=== PATIENT | male | born 1965 | race Caucasian/White ===

== ENCOUNTER 2022-09-06 10:22 | Emergency (ER) | payer MEDICAID ==
[~2022-09-06] VITALS: Ht 177.8 cm; Wt 79.4 kg
[2022-09-06] MEDS ORDERED: ACET325 (11:09)
[2022-09-06] MEDS ORDERED: IBUP200 (11:10)
[2022-09-06 11:45] LABS: BASOPHILS ABSOLUTE AUTO 0.05 K/mm3 (0.00-0.23); BASOPHILS PERCENT AUTO 0 % (0-2); Hematocrit 29.9 % (37.0-53.0); Hemoglobin 9.5 g/dL (13.5-17.5); LYMPHOCYTES ABSOLUTE AUTO 0.51 K/mm3 (0.84-5.20); LYMPHOCYTES PERCENT AUTO 3 % (21-46); MONOCYTES ABSOLUTE AUTO 0.28 K/mm3 (0.16-1.47); MONOCYTES PERCENT AUTO 2 % (4-13); Mean Corpuscular HGB Conc 31.8 g/dL (31.5-36.5); Mean Corpuscular Volume 82 fL (80-100); Mean Platelet Volume 9.1 fL (9.1-12.4); Platelet Count 431 K/mm3 (150-400); RDW Coefficient Variation 20.5 % (11.7-14.2); RDW Standard Deviation 61.6 fL (35.1-46.3); Red Blood Cell Count 3.65 M/mm3 (4.30-5.90); White Blood Cell Count 14.92 K/mm3 (4.00-11.30)
[2022-09-06 11:50] LABS: Calcium, Ionized (POC) 0.97 mmol/L (1.10-1.46); Chloride (POC) 93 mmol/L (98-108); Creatinine (POC) 0.5 mg/dL (0.8-1.3); Glucose (ISTAT POC) 134 mg/dL (70-99); Hemoglobin (POC) 10.9 g/dL (13.5-17.5); Potassium (POC) 3.1 mmol/L (3.5-5.5); Sodium (POC) 130 mmol/L (135-148); Total CO2 (POC) 25 mmol/L (21-32)
[2022-09-06 11:54] LABS: EOSINOPHILS ABSOLUTE AUTO 0.01 K/mm3 (0.00-0.68); EOSINOPHILS PERCENT AUTO 0 % (0-6); IMMATURE GRAN PERCENT AUTO 5 % (0-1); NEUTROPHILS ABSOLUTE AUTO 13.37 K/mm3 (1.96-9.15); NEUTROPHILS PERCENT AUTO 90 % (41-73)
[2022-09-06 12:15] LABS: Influenza A, PCR NEGATIVE (NEGATIVE); Influenza B, PCR NEGATIVE (NEGATIVE); Resp Syncytial Virus, PCR NEGATIVE (NEGATIVE); SARS-Cov-2 (COVID-19) PCR, MMC NEGATIVE (NEGATIVE)
[2022-09-06 13:22] LABS: Albumin/Globulin Ratio 0.4 (0.8-1.8); Bilirubin, Total 0.5 mg/dL (0.1-1.0); Bun/Creatinine Ratio 21.9 (12.0-20.0); Creatinine, Blood 0.64 mg/dL (0.60-1.20); Potassium, Blood 3.3 mmol/L (3.5-5.5)
[2022-09-06] MEDS ORDERED: Percocet 5-3251 EACH PO (18:57)
[2022-09-06] MEDS ORDERED: LEVO750 PO (18:57)
== END 2022-09-06 19:13 | disposition home or self-care (01) ==
LOC: ER 10:22
PROVIDERS: Emergency Medicine; Physician Assistant
DX: J18.9 Pneumonia, unspecified organism (principal); C80.1 Malignant (primary) neoplasm, unspecified; F17.210 Nicotine dependence, cigarettes, uncomplicated; Z20.822 Contact with and (suspected) exposure to COVID-19; Z79.899 Other long term (current) drug therapy
CPT/HCPCS: 0241U; 36415; 71046; 71260; 80047; 80053; 83605; 85014; 85025; 87040; 87186; 93005; 93010; 94640; 94664; 96365-59; 96366; 96375; 99284-25; A9270; J0456; J0696; J7030; J7050; Q9967

== ENCOUNTER 2022-09-07 19:38 | Inpatient (IN) | payer OTHER ==
[~2022-09-07] VITALS: Ht 177.8 cm; Wt 68.2 kg
[~2022-09-07 19:38] MED LIST: ACET325; IBUP200; LEVO750 PO; Percocet 5-3251 EACH PO
[2022-09-07 23:05] LABS: Hematocrit 24.7 % (37.0-53.0); Mean Corpuscular HGB 26.4 pg (26.0-34.0); Mean Corpuscular HGB Conc 32.4 g/dL (31.5-36.5); Mean Corpuscular Volume 82 fL (80-100); Mean Platelet Volume 9.2 fL (9.1-12.4); Platelet Count 358 K/mm3 (150-400); RDW Coefficient Variation 20.2 % (11.7-14.2); RDW Standard Deviation 59.9 fL (35.1-46.3); Red Blood Cell Count 3.03 M/mm3 (4.30-5.90)
[2022-09-07 23:06] LABS: Base Excess Venous 5.5 mmol/L; Bicarbonate Venous 29.1 mmol/L (24.0-30.0); pH Blood Venous 7.51 (7.34-7.37)
[2022-09-07 23:31] LABS: Albumin, Blood 1.7 g/dL (3.4-5.0); Albumin/Globulin Ratio 0.4 (0.8-1.8); Bilirubin, Total 0.3 mg/dL (0.1-1.0); Bun/Creatinine Ratio 21.7 (12.0-20.0); Calcium, Blood 7.3 mg/dL (8.5-10.1); Creatinine, Blood 0.51 mg/dL (0.60-1.20); Globulin, Blood 4.1 g/dL (2.2-4.0); Magnesium, Blood 2.5 mg/dL (1.6-2.4); Potassium, Blood 2.7 mmol/L (3.5-5.5); Total Protein, Blood 5.8 g/dL (6.4-8.2)
[2022-09-07 23:38] LABS: BAND PERCENT MAN 8 % (0-8); BASOPHILS PERCENT MAN 0 % (0-2); EOSINOPHILS PERCENT MAN 0 % (0-6); LYMPHOCYTES ABSOLUTE MAN 1.22 K/mm3 (0.84-5.20); LYMPHOCYTES PERCENT MAN 9 % (21-46); MONOCYTES ABSOLUTE MAN 0.27 K/mm3 (0.16-1.47); MONOCYTES PERCENT MAN 2 % (4-13); SEG NEUTROPHILS PERCENT MAN 81 % (41-73); TOTAL CELLS COUNTED 100
[2022-09-08 02:31] LABS: Source, Urine Clean Catch
[2022-09-08 02:52] LABS: Appearance, Urine Hazy (Clear); Bilirubin, Urine Neg (Neg); Blood, Urine 3+ (Neg); Color, Urine Yellow (P-Yellow); Glucose Qualitative, Urine Neg (Neg); Ketones, Urine Neg (Neg); Leukocyte Esterase, Urine 1+ (Neg); Nitrite, Urine Neg (Neg); Protein, Urine 2+ (Neg); Urobilinogen, Urine 2+ (Normal)
[2022-09-08 03:13] LABS: Amorphous Light (0-Heavy); Bacteria Few /hpf; Squamous Epithelial Cells Rare /hpf (Few)
[2022-09-08 03:19] LABS: U Amphetamine Screen DETECTED; U Barbituate Screen Not Detected; U Benzodiazapine Screen Not Detected; U Buprenorphine Screen Not Detected; U Cannabinoids Screen DETECTED; U Cocaine Screen Not Detected; U Methadone Screen Not Detected; U Methamphetamine Screen DETECTED; U Opiates Screen Not Detected; U Oxycodone Screen DETECTED; U Phencyclidine Screen Not Detected; U Propoxyphene Screen Not Detected
--- NOTE | 2022-09-08 03:20 | NUR ---
TELE CALLED, PT HAD A ST ELEVATION IN A V LEAD OF 2.2. PT ASYMPTOMATIC, DENIES ANY CHEST PAIN/PRESSURE. PT IN NSR CURRENTLY AT 90. TALKED TO CHARGE NURSE.
--- NOTE | 2022-09-08 03:51 | NUR ---
AMDIT NOTE; PT ARRIVES TO THE FLOOR AT 0235 VIA ED GURNERY. UPON ADMIT THE PT IS AXO X4 AND ABLE TO SELF TRANSFER FROM THE ED GURNEY TO THE HOSPITAL BED. POTASSIUM CHLORIDE IS RUNNING CONGRUENTLY WITH SALINE UPON ADMIT. THE PT DENIES ANY SOB, CHEST PAIN/PRESSURE, N/V UPON ADMIT.
--- NOTE | 2022-09-08 04:51 | NUR ---
CALLED HOSPITALIST INFORMED HIM THAT TELEMETRY IS READING AN ST DEPRESSION IN V LEAD, WHICH IS DIFFERENT THAN ON PREVIOUS EKG PERFORMED ON 09/06/2022. TROPONIN AND NEW EKG ORDERED. PT IS ASYMPTOMATIC.
[2022-09-08 05:39] LABS: Albumin, Blood 1.7 g/dL (3.4-5.0); Albumin/Globulin Ratio 0.4 (0.8-1.8); Bilirubin, Total 0.2 mg/dL (0.1-1.0); Bun/Creatinine Ratio 21.7 (12.0-20.0); Calcium, Blood 7.1 mg/dL (8.5-10.1); Creatinine, Blood 0.55 mg/dL (0.60-1.20); Potassium, Blood 3.4 mmol/L (3.5-5.5); Total Protein, Blood 5.7 g/dL (6.4-8.2)
--- NOTE | 2022-09-08 06:25 | NUR ---
NOTIFIED OF CHANGES IN PTS EKG. PT IS ASYMPTOMATIC, TROPONINS ARE NEGATIVE. NO NEW ORDERS AT THIS TIME.
--- NOTE | 2022-09-08 06:39 | NUR ---
SHIFT SUMMARY; PT WITH EKG CHANGES LAST NIGHT, PT REMAINS ASYMPTOMATIC. THE PT IS AXO X4 AND A STANDBY ASSIT. TELE IS IN PLACE, NSR IN THE 'S PRESENTLY. THE PT DENIES ANY N/V, CHEST PAIN/PRESSURE OR SOB. THE PT SAYS HE HAS CHRONIC SHOULDER AND BACK PAIN BUT DOES NOT PRESENTLY NEED TO BE MEDICATED FOR THE PAIN, WILL REPORT THE NEED FOR CONTINUAL PAIN ASSESSMENTS TO ONCOMING RN. CURRENTLY THE PT IS RESTING IN BED WITH THE BED IN THE LOWEST POSITION AND THE CALL LIGHT AT BEDSIDE.
--- NOTE | 2022-09-08 18:18 | NUR ---
SHIFT SUMMARY: PT A/O X 4 IND IN ROOM. PLEASANT AND COOPERATIVE WITH CARE. PT HAD NO COMPLAINTS EXCEPT PAIN IN SHOULDERS, L SIDE OF ABD. PAIN MANAGED WITH CURRENT PAIN MEDICATIONS. PT HAD LOW GRADE FEVER. ORAL TEMP 99.9. PT GETTING HYDROCODONE WITH TYLENOL. PT EATING AND DRINKING FLUIDS WELL.
--- NOTE | 2022-09-08 19:40 | NUR ---
PT UP AND MOVING AROUD DURING BLOOD PRESSURE CHECK. PT HAD FRIEND IN ROOM, PT SHIFTING IN BED. WILL RECHECK BLOOD PRESSURE AT A LATER TIME. PTS FRIEND HAS SINCE WENT HOME.
--- NOTE | 2022-09-09 04:48 | NUR ---
SHIFT SUMMARY; NO ACUTE CHANGES OVERNIGHT. THE PT HAS BEEN AWAKE FOR ALMOST THE ENTIRETY OF THE NIGHT. THE PT IS MUCH MORE RESTLESS THIS EVENING. THE PT IS AXO X4, STANDBY ASSIST IN THE ROOM. THE PT USES THE BEDSIDE URINAL T/O THE NIGHT. THE PT HAS PULLED A FEW IVS THIS EVENING, VERY FIDGETTY. MEDICATED FOR PAIN ONCE LAST NIGHT. CURRENTLY THE PT IS LAYING IN BED WITH THE BED IN THE LOWEST POSITION AND THE CALL LIGHT AT BEDSIDE.
[2022-09-09 05:06] LABS: Hematocrit 26.7 % (37.0-53.0); Hemoglobin 8.6 g/dL (13.5-17.5); Mean Corpuscular HGB 26.2 pg (26.0-34.0); Mean Corpuscular HGB Conc 32.2 g/dL (31.5-36.5); Mean Corpuscular Volume 81 fL (80-100); Mean Platelet Volume 9.3 fL (9.1-12.4); NRBC ABSOLUTE 0.03 K/mm3 (0.00-0.02); NRBC Auto 0.2 /100 WBC (0.0-0.2); Platelet Count 400 K/mm3 (150-400); RDW Coefficient Variation 20.2 % (11.7-14.2); RDW Standard Deviation 59.7 fL (35.1-46.3); Red Blood Cell Count 3.28 M/mm3 (4.30-5.90); White Blood Cell Count 15.94 K/mm3 (4.00-11.30)
[2022-09-09 05:31] LABS: Albumin, Blood 1.7 g/dL (3.4-5.0); Anion Gap 6 mmol/L (6-16); Blood Urea Nitrogen 7 mg/dL (8-24); Bun/Creatinine Ratio 17.4 (12.0-20.0); CO2, Blood 26 mmol/L (21-32); Calcium, Blood 7.2 mg/dL (8.5-10.1); Chloride, Blood 99 mmol/L (98-108); Glomerular Filtration Rate 128 (60-); Glucose, Blood 125 mg/dL (70-99); Phosphorus, Blood 2.5 mg/dL (2.5-4.9); Potassium, Blood 3.7 mmol/L (3.5-5.5); Sodium, Blood 131 mmol/L (136-145)
--- NOTE | 2022-09-09 19:53 | NUR ---
SHIFT SUMMARY: PT A/O X 4, STANDBY ASSIST. ON RA. PT CONTINUES TO BE SOB W/EXERTION. PAIN MANAGED WITH CURRENT PAIN MEDICATIONS. PT PLEASANT AND COOPERATIVE WITH CARE.
--- NOTE | 2022-09-10 05:19 | NUR ---
SHIFT SUMMARY 56 YR M ADMITTED ON 09/08/22 FOR PNA. FULL CODE. NO ACUTE CHANGES THIS SHIFT. PT C/O BACK PAIN THAT HE STATES HURTS WHEN HE INHALES, AND BREATHING IS LABORED . PAIN MEDS PER EMAR APPEAR TO BE AFFECTIVE. HE PLEASANT AND COOPERATIVE WITH CARE AND DOES NOT CALL OFTEN FOR ASSISTANCE. BED IN LOW POSITION AND CALL LIGHT WITHIN REACH.
--- NOTE | 2022-09-10 17:38 | NUR ---
SHIFT SUMMARY PT A&OX4 AND COOPERATIVE OF CARE. PT C/O BACK PAIN AND MEDICATED PER EMAR. PT DENIED FEELING SOB OR CP. USES URINAL INDEPENDENTLY. INDEPENDENT IN ROOM. NO ACUTE CHANGES. BED IN LOWEST POSITION AND CALL LIGHT IN REACH.
--- NOTE | 2022-09-11 05:06 | NUR ---
SHIFT SUMMARY 56 YR M ADMITTED ON 09/08/22 FOR PNA. FULL CODE. NO ACUTE CHANGES THIS SHIFT. THIS NURSE AND A ASSISTANT EDITOR NOTICED THE SMELL OF CIGARETTES ON PT AND IN HIS BATHROOM SO WAS ASKED DIRECTLY IF HE HAD BEEN SMOKING IN THE BATHROOM. HE STATED HE HAD NOT BUT THAT HE HAD GONE OUTSIDE EARLIER AND SMOKED PART OF A CIGARETTE. 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 OTHER THAN THAT HE HAS BEEN PLEASANT AND COOPERATIVE W/ CARE. HE C/O PAIN IN HIS RIBS AND WAS MEDICATED PER EMAR. PER NOTES, PT WILL LIKELY DISCHARGE WITHIN THE NEXT COUPLE OF DAYS.
[2022-09-11 07:29] LABS: Albumin, Blood 1.8 g/dL (3.4-5.0); Albumin/Globulin Ratio 0.4 (0.8-1.8); Bilirubin, Total 0.2 mg/dL (0.1-1.0); Bun/Creatinine Ratio 12.5 (12.0-20.0); Calcium, Blood 7.6 mg/dL (8.5-10.1); Creatinine, Blood 0.48 mg/dL (0.60-1.20); Globulin, Blood 4.5 g/dL (2.2-4.0); Potassium, Blood 4.3 mmol/L (3.5-5.5); Total Protein, Blood 6.3 g/dL (6.4-8.2)
[2022-09-11] MEDS ORDERED: CEPH500 PO (16:03)
--- NOTE | 2022-09-11 16:54 | NUR ---
PT DISCHARGED HOME. [facility] CALLED TO SET UP APPOINTMENT FOR PT. RACHEAL, FROM [facility] REQUESTED PT INFORMATION, AND STATED SHE WOULD CALL PT TOMORROW, 09/12/22 TO SET UP APPOINTMENT. PT NOTIFIED TO EXPECT CALL TOMORROW. DISCHARGE INSTRUCTIONS AND EDUCATION EXPLAINED TO PT. NO NEW QUESTIONS. PERSCRIPTIONS FAXED TO [employer]. IV DC'D AND BELONGINGS SENT HOME WITH PT. PT TAKEN BY WHEELCHAIR TO WAITING ROOM, PER PT REQUEST, TO WAIT FOR RIDE FROM SISTER.
== END 2022-09-11 16:40 | disposition home or self-care (01) | DRG 871 ==
LOC: ER 19:38 → MEDS 19:39 → ENPENDDIS 09-11 15:57 → MEDS 09-11 16:40
PROVIDERS: Internal Medicine; Student in an Organized Health Care Education/Training Program; ADMIT Internal Medicine
DX: A40.3 Sepsis due to Streptococcus pneumoniae (principal); J13 Pneumonia due to Streptococcus pneumoniae; C79.51 Secondary malignant neoplasm of bone; M84.58XA Pathological fracture in neoplastic disease, other specified site, initial encounter for fracture; C34.90 Malignant neoplasm of unspecified part of unspecified bronchus or lung; E87.1 Hypo-osmolality and hyponatremia; J90 Pleural effusion, not elsewhere classified; J44.0 Chronic obstructive pulmonary disease with (acute) lower respiratory infection; F15.20 Other stimulant dependence, uncomplicated; E44.0 Moderate protein-calorie malnutrition; F17.210 Nicotine dependence, cigarettes, uncomplicated; E87.6 Hypokalemia; D63.0 Anemia in neoplastic disease; E83.51 Hypocalcemia; E88.09 Other disorders of plasma-protein metabolism, not elsewhere classified; Z68.21 Body mass index [BMI] 21.0-21.9, adult; Z79.2 Long term (current) use of antibiotics; Z79.899 Other long term (current) drug therapy
CPT/HCPCS: 36415; 80053; 80069; 81001; 82330; 82803; 83605; 83735; 84484; 85025; 85027; 87040; 93005; 93010; 96365; 96367; 96372; 96375-59; 99284-25; A9270; G0378; J0696; J1650; J1885; J3480; J7030; J7050

== ENCOUNTER 2022-09-20 10:23 | Emergency (ER) | payer OTHER ==
[~2022-09-20] VITALS: Ht 177.8 cm; Wt 63.5 kg
[~2022-09-20 10:23] MED LIST changes: +CEPH500 PO
[2022-09-20 11:19] LABS: BASOPHILS ABSOLUTE AUTO 0.05 K/mm3 (0.00-0.23); BASOPHILS PERCENT AUTO 1 % (0-2); EOSINOPHILS ABSOLUTE AUTO 0.06 K/mm3 (0.00-0.68); EOSINOPHILS PERCENT AUTO 1 % (0-6); Hematocrit 25.9 % (37.0-53.0); Hemoglobin 7.9 g/dL (13.5-17.5); IMMATURE GRAN ABSOLUTE AUTO 0.39 K/mm3 (0.00-0.10); IMMATURE GRAN PERCENT AUTO 4 % (0-1); LYMPHOCYTES ABSOLUTE AUTO 1.35 K/mm3 (0.84-5.20); LYMPHOCYTES PERCENT AUTO 15 % (21-46); MONOCYTES ABSOLUTE AUTO 0.89 K/mm3 (0.16-1.47); MONOCYTES PERCENT AUTO 10 % (4-13); Mean Corpuscular HGB 25.9 pg (26.0-34.0); Mean Corpuscular HGB Conc 30.5 g/dL (31.5-36.5); Mean Corpuscular Volume 85 fL (80-100); Mean Platelet Volume 8.6 fL (9.1-12.4); NEUTROPHILS ABSOLUTE AUTO 6.44 K/mm3 (1.96-9.15); NEUTROPHILS PERCENT AUTO 70 % (41-73); NRBC ABSOLUTE 0.02 K/mm3 (0.00-0.02); NRBC Auto 0.2 /100 WBC (0.0-0.2); Platelet Count 496 K/mm3 (150-400); RDW Coefficient Variation 21.5 % (11.7-14.2); RDW Standard Deviation 65.5 fL (35.1-46.3); Red Blood Cell Count 3.05 M/mm3 (4.30-5.90); White Blood Cell Count 9.18 K/mm3 (4.00-11.30)
[2022-09-20 11:46] LABS: Magnesium, Blood 2.2 mg/dL (1.6-2.4)
[2022-09-20 11:49] LABS: Albumin, Blood 2.3 g/dL (3.4-5.0); Albumin/Globulin Ratio 0.5 (0.8-1.8); Bilirubin, Total 0.2 mg/dL (0.1-1.0); Bun/Creatinine Ratio 26.6 (12.0-20.0); Calcium, Blood 7.8 mg/dL (8.5-10.1); Creatinine, Blood 0.49 mg/dL (0.60-1.20); Globulin, Blood 4.6 g/dL (2.2-4.0); Potassium, Blood 3.7 mmol/L (3.5-5.5); Total Protein, Blood 6.9 g/dL (6.4-8.2)
[2022-09-20] MEDS ORDERED: OXYC5 PO (12:05)
[2022-09-20] MEDS ORDERED: ONDA4ODT MM (12:05)
== END 2022-09-20 12:23 | disposition home or self-care (01) ==
LOC: ER 10:23
PROVIDERS: Emergency Medicine
DX: G89.3 Neoplasm related pain (acute) (chronic) (principal); C79.51 Secondary malignant neoplasm of bone; F17.210 Nicotine dependence, cigarettes, uncomplicated
CPT/HCPCS: 80053; 83735; 85025; 96374; 99284-25; J2270; J7030

== ENCOUNTER 2022-10-06 14:53 | Emergency (ER) | payer OTHER ==
[~2022-10-06] VITALS: Ht 177.8 cm; Wt 60.3 kg
[~2022-10-06 14:53] MED LIST changes: +ONDA4ODT MM; +OXYC5 PO
[2022-10-06 16:40] LABS: BASOPHILS ABSOLUTE AUTO 0.04 K/mm3 (0.00-0.23); BASOPHILS PERCENT AUTO 1 % (0-2); EOSINOPHILS ABSOLUTE AUTO 0.14 K/mm3 (0.00-0.68); EOSINOPHILS PERCENT AUTO 2 % (0-6); Hematocrit 26.9 % (37.0-53.0); Hemoglobin 7.9 g/dL (13.5-17.5); IMMATURE GRAN ABSOLUTE AUTO 0.22 K/mm3 (0.00-0.10); IMMATURE GRAN PERCENT AUTO 3 % (0-1); LYMPHOCYTES PERCENT AUTO 17 % (21-46); MONOCYTES ABSOLUTE AUTO 1.12 K/mm3 (0.16-1.47); MONOCYTES PERCENT AUTO 13 % (4-13); Mean Corpuscular HGB 25.1 pg (26.0-34.0); Mean Corpuscular HGB Conc 29.4 g/dL (31.5-36.5); Mean Corpuscular Volume 85 fL (80-100); NEUTROPHILS ABSOLUTE AUTO 5.53 K/mm3 (1.96-9.15); NEUTROPHILS PERCENT AUTO 65 % (41-73); NRBC ABSOLUTE 0.02 K/mm3 (0.00-0.02); NRBC Auto 0.2 /100 WBC (0.0-0.2); Platelet Count 457 K/mm3 (150-400); RDW Coefficient Variation 20.9 % (11.7-14.2); RDW Standard Deviation 65.3 fL (35.1-46.3); Red Blood Cell Count 3.15 M/mm3 (4.30-5.90); White Blood Cell Count 8.45 K/mm3 (4.00-11.30)
[2022-10-06 16:54] LABS: Albumin, Blood 2.6 g/dL (3.4-5.0); Albumin/Globulin Ratio 0.6 (0.8-1.8); Bilirubin, Total 0.2 mg/dL (0.1-1.0); Bun/Creatinine Ratio 17.2 (12.0-20.0); Calcium, Blood 7.9 mg/dL (8.5-10.1); Creatinine, Blood 0.81 mg/dL (0.60-1.20); Globulin, Blood 4.4 g/dL (2.2-4.0); Potassium, Blood 4.1 mmol/L (3.5-5.5)
[2022-10-06] MEDS ORDERED: Percocet 5-3251 EACH PO (18:10)
== END 2022-10-06 18:43 | disposition home or self-care (01) ==
LOC: ER 14:53
PROVIDERS: Student in an Organized Health Care Education/Training Program
DX: Z76.0 Encounter for issue of repeat prescription (principal); C79.51 Secondary malignant neoplasm of bone; F17.210 Nicotine dependence, cigarettes, uncomplicated
CPT/HCPCS: 71260; 80053; 85025; 93005; 93010; 99284-25; A9270; Q9967